=== PATIENT | male | born 1975 | race Caucasian/White ===

== ENCOUNTER 2016-04-14 23:52 | Emergency (ER) | payer OTHER ==
--- NOTE | 2016-04-14 23:55 | PDOC ---
History of Present Illness - General Chief Complaint: Chest Pain Stated Complaint: CHEST PAIN Time Seen by Provider: 04/14/16 23:54 History Source: Patient Exam Limitations: No Limitations - History of Present Illness Initial Comments: 04/15/16 00:00 This is a 41-year-old male who comes in complaining of pleuritic type left- sided chest pain associated with some mild shortness of breath. Patient said he has had approximally 4-5 hours of constant chest pain. Patient said it is worse when he takes a deep breath worse when he coughs and worse when he moves or uses the chest wall muscles. Patient does have a history significant for hypertension, high cholesterol. Patient denies a family history of coronary artery disease. Patient denies any smoking or cocaine or illegal drug use. Patient denies history of similar symptoms in the past. Patient denies any unusual physical activity working out at the gym or lifting. Patient said that the pain started when he was just relaxing this evening. Patient did not take anything for the pain. PAST MEDICAL HISTORY: As per history of present illness PAST SURGICAL HISTORY: no significant history FAMILY HISTORY: no pertinant history SOCIAL HISTORY: Pt lives with family and is employed. MEDICATIONS: reviewed ALLERGIES: As per nursing notes Review of Systems General: No fevers or chills, no weakness, no weight loss HEENT: No change in vision. No sore throat,. No ear pain CardioVascular: + chest pain, + mild shortness of breath Respiratory:No cough, or wheezing. Gastrointestinal: no nausea, vomitting, diarrhea or constipation, No rectal bleeding Genitourinary: No dysuria, hematuria, or frequency Musculoskeletal: No joint or muscle pain or swelling Neurologic: No headache, vertigo, dizziness or loss of consciousness Psychiatric: nor depression Skin: No rashes or easy bruising Endocrine: no increased thirst or abnormal weight change Allergic: no skin or latex allergy All other systems reviewed and normal Exam: General: Well-nourished well-developed individual, no acute distress HEENT: Throat: Normal, tonsils normal, no erythema or exudate Neck: Supple, no meningeal signs, no lymphadenopathy Eyes::Pupils equal reactive and round, extraocular motion intact Chest: Pain is reproduced with palpation Cardiac: S1-S2 normal, regular rate and rhythm, no murmurs rubs or gallops Respiratory: Lungs clear to auscultation bilateral Abdomen: Soft, nondistended, normal bowel sounds, nontender to palpation diffusely Extremities: Warm, dry, no cyanosis, clubbing, or edema Skin: No rashes Neuro: Alert and oriented x3, nonfocal exam, grossly intact, normal gait Psych: Normal mood and affect 04/15/16 00:15 EKG normal sinus rhythm at a rate of 88, normal intervals no acute ST-T wave changes normal EKG Chest x-ray no acute pathology Past History - Past Medical History Allergies/Adverse Reactions: Allergies Allergy/AdvReac Type Severity Reaction Status Date / Time No Known Allergies Allergy Verified 04/14/16 23:53 Home Medications: Ambulatory Orders NK [No Known Home Medication] 04/14/16 *Physical Exam - Vital Signs Last Vital Signs Temp Pulse Resp BP Pulse Ox 98 F 100 H 16 158/97 99 04/14/16 23:56 04/14/16 23:56 04/14/16 23:56 04/14/16 23:56 04/14/16 23:56 ED Treatment Course - RADIOLOGY Radiology Studies Ordered: Category Date Time Status CHEST X-RAY PORTABLE* [RAD] Stat Radiology 04/15/16 00:10 Taken - Medications Given in the ED: ED Medications Discontinued Medications Generic Name Dose Route Start Last Admin Trade Name Freq PRN Reason Stop Dose Admin Ketorolac Tromethamine 60 mg 04/14/16 23:59 04/15/16 00:08 Toradol Injection - IM 04/15/16 00:00 60 mg ONCE ONE Administration *DC/Admit/Observation/Transfer Diagnosis at time of Disposition: Pleuritic chest pain - Discharge Dispostion Disposition: HOME Condition at time of disposition: Stable Admit: Yes - Patient Instructions Additional Instructions: Tylenol or Motrin as needed for pain. Return to the emergency department immediately with ANY new, persistent or worsening symptoms. Continue any medications as previously prescribed by your physician. You should follow up with your primary doctor as soon as possible regarding today's emergency department visit. . Please make sure your doctor reviews the results of your emergency evaluation. Thank you for coming to the Emergency Department today for your care. It was a pleasure to see you today. Please note that your evaluation is INCOMPLETE until you follow-up with your doctor.
[2016-04-14 23:59] VITALS: BP 158/97; PULSE 100; TEMP 98; BMI 28.2
[2016-04-14] MEDS ORDERED: KETOROLAC TROMETHAMINE 60 MG/2 ML VIAL IM ONE (23:59)
[2016-04-15 01:52] LABS: TROPONIN I < 0.02 ng/ml (0.00-0.05)
--- NOTE | 2016-04-16 13:49 | EKG ---
Test Reason : Blood Pressure : / mmHG Vent. Rate : 088 BPM Atrial Rate : 088 BPM P-R Int : 156 ms QRS Dur : 092 ms QT Int : 356 ms P-R-T Axes : 017 037 035 degrees QTc Int : 430 ms POOR DATA QUALITY, INTERPRETATION MAY BE ADVERSELY AFFECTED NORMAL SINUS RHYTHM NORMAL ECG NO PREVIOUS ECGS AVAILABLE Confirmed by PK WALKER MD ([id number]) on 04/16/2016 1:49:21 PM Referred By: MD PALAFOX Confirmed By:PK WALKER MD
== END 2016-04-15 01:56 | disposition home or self-care (01) ==
LOC: FER 23:52
PROC: 3E0233Z Introduction of Anti-inflammatory into Muscle, Percutaneous Approach (ICD-10-PCS; principal; 2016-04-14)
DX: R07.81 Pleurodynia (principal)
CPT/HCPCS: 36415; 71010-TC; 82550; 82553; 84484; 93005; 99281-25